=== PATIENT | male | born 1965 | race Caucasian/White ===

== ENCOUNTER 2019-02-20 22:00 | Inpatient (IN) ==
--- NOTE | 2019-02-21 10:54 | PDOC ---
HPI - History of Present Illness History of Present Illness: Mr. willow curry is a very nice 53-year-old gentleman with ALS transferred to [facility] floor for worsening clinical condition from swing bed found to have a left lower lobe pneumonia on CT scan of his chest please read my discharge summary for details Past Medical History Medical History: 1. ALS diagnosed 2 years ago. 2. Respiratory failure dependent on ventilator secondary to ALS. 3. Status post PEG and tracheostomy Surgical History: Tracheostomy and PEG tube October 2018 Family History: Reviewed an Not Pertinent Past Social History: Does not smoke, does not drink now drugs. In the Past 12 Months, Have Used or Abuse Any of the Following Substance: None Medication / Allergies Home Medications: Home Medications Medication Instructions Recorded Confirmed Guaifenesin [Mucinex] 600 mg PEG BID 11/12/18 01/30/19 ibuprofen 100 mg/5 mL oral 600 mg PO TID-QID PRN 90 Days 12/03/18 01/30/19 suspension #4320 ml ipratropium-albuterol 0.5 mg-3 3 ml INH Q6H ml 12/03/18 01/30/19 mg(2.5 mg base)/3 mL nebulization soln sertraline 20 mg/mL oral 100 mg PO QDAY 90 Days #450 ml 12/03/18 01/30/19 concentrate budesonide 0.5 mg/2 mL suspension 2 ml INH BID #60 ml 01/23/19 01/30/19 for nebulization codeine 10 mg-guaifenesin 100 mg/5 2 ml PO Q4-6H PRN #120 ml 01/23/19 01/30/19 mL oral liquid Lorazepam 0.5 mg PO Q6-8H 01/24/19 01/30/19 HYDROcodone/APAP 7.5/325/15ml 15 ml PO Q4H PRN #150 ml 01/25/19 01/30/19 [Lortab 7.5mg/325mg per 15ml Soln] acetylcysteine 200 mg/mL (20 %) 3 ml INH QDAY #270 ml 01/25/19 01/30/19 solution Atropine Sulfate [Isopto Atropine] 5 ml OPHTHALMIC (EYE) Q4-6H PRN 01/30/19 01/30/19 Allergies/Adverse Reactions: Allergies Allergy/AdvReac Type Severity Reaction Status Date / Time No Known Allergies Allergy Verified 02/21/19 07:14 Exam - General General Appearance: No Acute Distress, Cooperative - Respiratory Respiratory Exam: POSITIVE: Breathing Non Labored, Normal to Percussion and Palpation, Rales - Cardiovascular Cardiovascular Exam: POSITIVE: RRR, No Murmur, No Clicks, No Gallops, No Rubs, PMI Non-Displaced - GI/Abdominal GI/Abdominal Exam: POSITIVE: Normal Bowel Sounds, Non Tender, Non Distended, Soft, No Masses, No Hepatomegaly, No Splenomegaly, No Organomegaly - Extremities Extremities Exam: POSITIVE: No Clubbing Present, No Edema Present Assessment and Plan - Patient Problems (1) Hospital-acquired bacterial pneumonia Current Visit: Yes Status: Acute Comment: Cefepime and Vanco blood cultures were drawn band adjustment needed at this time Code(s): J15.9 - Unspecified bacterial pneumonia (2) Respiratory failure, chronic neuromuscular Current Visit: No Status: Chronic Comment: Continue current vent settings Code(s): J96.10 - Chronic respiratory failure, unspecified whether with hypoxia or hypercapnia
[2019-02-21] MEDS ORDERED: ACETAMINOPHEN 325 MG TABLET PO PRN (11:56)
[2019-02-21] MEDS ORDERED: LIDOCAINE W/ SODIUM BICARB 0.5 ML SYR SUBD PRN (11:56)
[2019-02-21] MEDS ORDERED: HYDROcodone/APAP 7.5/325/15ml 15 ML CUP PO PRN (11:56)
[2019-02-21] MEDS ORDERED: LORazepam 1 MG TABLET PO PRN (11:56)
[2019-02-21] MEDS ORDERED: GUAIFENESIN/CODEINE SYRUP 100 MG/ 10 MG/ 5 ML UD CUP PO PRN (11:56)
[2019-02-21] MEDS ORDERED: Bacitracin Oint 14.2 gm tube 14 APPLIC/14.2 GM TUBE TOPICAL PRN (11:56)
[2019-02-21] MEDS ORDERED: SIMETHICONE 40 MG/0.6 ML PO PRN (11:56)
[2019-02-21] MEDS: HEPARIN 500 UNIT/5 ML SYRINGE FOR CENTRAL LINE IVP PRN ×3 (12:35→23:47)
[2019-02-21] MEDS ORDERED: LIDOCAINE 2% VISCOUS(20 MG/1 ML) - 15 ML UD CUP PO ONE (13:24)
[2019-02-21] MEDS: GUAIFENESIN 200 MG/10 ML LIQUID PEG SCH ×2 (13:48→18:59)
--- NOTE | 2019-02-21 13:51 | PDOC(PROG) ---
General Note Progress Note: I spoke with pharmacist Randa Eastman regarding patient's Radicava infusion therapy during acute episode of pneumonia. I have recommended holding treatment until patient is back to "swing bed" status in his more usual state of health. Additionally, I consulted with patient's neurologist (outpatient) Dr. Anna on ~02/14/19 he expressed concern that radicava not likely benefiting patient significantly (however there is no way to be certain). He recommended discontinuation of therapy when/if patient loses the ability to ambulate as this seems to be the most important clinical milestone to Mr. Watson. I agree with this medication and discussed this with Dr. Bucio as well.
[2019-02-21] MEDS: Cefepime Inj 2 GM in Sodium Chloride 0.9% 100 ML IV SCH ×2 (15:22→23:12)
[2019-02-21] MEDS: IBUPROFEN 100 MG/5 ML PO PRN (15:57)
[2019-02-21] MEDS: IPRATROPIUM/ALBUTEROL SULFATE 3 ML NEB NEB PRN (18:45)
[2019-02-21] MEDS: BUDESONIDE 0.5 MG/2 ML NEB SCH (18:45)
[2019-02-21] MEDS: BANATROL PLUS PEG SCH (19:00)
[2019-02-21] MEDS: SIMETHICONE 40 MG/0.6 ML PO SCH (19:00)
[2019-02-21] MEDS ORDERED: GUAIFENESIN 600 MG TABLET PO SCH (21:00)
[2019-02-22 04:40] LABS: BASOPHILS # (AUTO) 0.06 10*3/UL; BASOPHILS % (AUTO) 0.7 % (0-1); EOSINOPHILS # (AUTO) 0.21 10*3/UL; EOSINOPHILS % (AUTO) 2.4 % (0-8); Hematocrit [HCT] 35.7 % (42.0-52.0); Hemoglobin [HGB] 11.9 g/dL (14.0-18.0); LYMPHOCYTES # (AUTO) 1.41 10*3/uL; MEAN CORPUSCULAR HEMOGLOBIN 29.8 PG (27-31); MEAN CORPUSCULAR HGB CONC 33.3 g/dL (33-37); MEAN CORPUSCULAR VOLUME 89.3 FL (80-90); MEAN PLATELET VOLUME 11.1 FL (7.4-12.2); MONOCYTES # (AUTO) 1.02 10*3/UL (0.3-0.8); MONOCYTES % (AUTO) 11.5 % (5-15); NEUTROPHILS # (AUTO) 6.15 10*3/UL; NEUTROPHILS % (AUTO) 69.2 % (50-80)
[2019-02-22 04:46] LABS: PLATELET MORPHOLOGY COMMENT NORMAL MORPHOLOGY (NORM); RBC MORPHOLOGY COMMENT NORMAL MORPHOLOGY (NORM); WBC MORPHOLOGY COMMENT NORMAL MORPHOLOGY (NORM)
[2019-02-22 05:45] LABS: BLOOD UREA NITROGEN 19 mg/dL (7-22); SERUM ALBUMIN 3.5 g/dL (3.5-4.8)
[2019-02-22] MEDS: IPRATROPIUM/ALBUTEROL SULFATE 3 ML NEB NEB PRN ×2 (06:28→18:40)
[2019-02-22] MEDS: ACETYLCYSTEINE NEB SCH (06:29)
[2019-02-22] MEDS: BUDESONIDE 0.5 MG/2 ML NEB SCH ×2 (06:31→18:40)
[2019-02-22] MEDS: Sertraline Tab 50 MG TAB PEG SCH (07:35)
[2019-02-22] MEDS: GUAIFENESIN 200 MG/10 ML LIQUID PEG SCH ×3 (07:49→20:05)
[2019-02-22] MEDS: Cefepime Inj 2 GM in Sodium Chloride 0.9% 100 ML IV SCH ×2 (07:49→16:10)
[2019-02-22] MEDS: BANATROL PLUS PEG SCH ×2 (07:49→20:05)
[2019-02-22] MEDS: SIMETHICONE 40 MG/0.6 ML PO SCH ×2 (07:49→20:06)
[2019-02-22] MEDS: HEPARIN 500 UNIT/5 ML SYRINGE FOR CENTRAL LINE IVP PRN ×2 (07:50→16:20)
--- NOTE | 2019-02-22 09:40 | OTI REPORT ---
Thank you for the referral of Allan Watson. He was seen on 02/21/19 for an occupational therapy inpatient evaluation secondary to ALS. SUBJECTIVE: The patient is a 53-year-old male who is being seen secondary to decreasing function with his ALS. The patient reports he is not doing well. He did text and let the therapist know that he had diuretics last night and he was having to urinate every 10 minutes. They also found pneumonia in his lungs. The patient was brought into the hospital as it is becoming more and more difficult for his family and his girlfriend to take care of him in their home. The patient does have a tracheostomy and a PEG tube for feedings. He has decreased ability with his shoulders and elbows but has more abilities with his lower extremities. The patient does use a [id number] method in order to speak. At this time the patient is non verbal and cannot speak because of the trach and decreased musculature in the oral motor region. Our main goal is to keep the patient comfortable and to keep his joints mobile while he is in the hospital. Today the patient states he does not want to get out of bed as he states he does not feel well secondary to being up most of the night urinating. PAST MEDICAL HISTORY: Past medical history can be found in the patient's medical record. OBJECTIVE FINDINGS: General observations: Today it was observed that the patient does drool. He does have a suction tool to suction out the saliva from his mouth. The patient is not able to speak but cognitively is able to answer simple questions via text. He is still cognizant enough to follow conversation. The patient can use his thumb to text; however, his hand function is decreasing. Range of motion: The patient has zero range of motion in the shoulders and has 0 to 90 degrees of flexion in the elbows. Strength: Shoulder strength is 1/5, elbow strength is 2+/5, wrist strength is 2+/5, and finger strength is 2+/5. He does have some extensor lag in bilateral fingers in digits 2 and 3. Activities of daily living: The patient is dependent with upper extremity dressing and requires max assist for lower extremity dressing. Balance: The patient can sit edge of bed with stand by assist. Transfers: The patient can come from sit to stand from a heightened surface with contact guard to min assist. From a low surface he needs max assist to come from sit to stand. Ambulation: The patient is able to ambulate with contact guard to min assist to keep his balance. ASSESSMENT: Problem List: Decreased range of motion Decreased ability to communicate Generalized weakness Short-Term Goals: To be met by discharge from inpatient: Patient will have 80% of full passive range of motion. Patient will continue to use text with his thumb. Patient will be able to sit edge of bed and complete trunk righting activities. Long-Term Goals: To be met following discharge from inpatient: Patient will return to swingbed status and have decreased physical difficulties. TREATMENT PLAN: Patient will be seen one time per day during the week and one time per day over the weekend as an inpatient to address the above goals and objectives. INITIAL TREATMENT: Treatment today consisted of the initial evaluation followed by passive range of motion to the lower and upper extremities including hips, knees, ankles, and shoulders in all planes and ranges as well as finger extension and wrist extension. We also did cervical rotation and a lateral stretch to the upper traps. The patient reported that this all felt good and he would like to continue with range of motion as he cannot move his joints himself. This also decreases decubitus ulcers and other bedsores. RAMIROD
--- NOTE | 2019-02-22 09:45 | OT.PROG ---
Progress Note Progress Note: S: Pt. stated that he was feeling better with the antibiotics and was ready for stretching. O: tx consisted of BUE PROM stretches of DIP, PIP and MCP flexion and extension, Wrist in all planes of motion, elbow flexion and extension, shoulder PROM in all planes of motion, BLE PROM stretches of hip in all planes of motion, knee flexion and extension, ankle in all planes of motion. pt then completed bed mobility from supine to EOB and transferred with CGA for safety to recliner with FWW. A: pt tolerated session well today. pt had some mild pain with EROT of R UE. P: continue POC
--- NOTE | 2019-02-22 10:37 | PDOC(PROG) ---
Interval History: Patient is doing much better today his lungs sound better he is breathing better and he tells me overall he feels improved compared to yesterday Objective : Data - Labs CBC and BMP: 02/22/19 04:35 02/22/19 04:35 Objective : Exam - General General Appearance: Cooperative - Respiratory Respiratory Exam: Clear to Auscultation - Bilaterally, Breathing Non Labored, Normal To Percussion, Normal to Percussion and Palpation - Cardiovascular Cardiovascular Exam: RRR, No Murmur, No Clicks, No Gallops, No Rubs, PMI Non- Displaced Assessment and Plan - Patient Problems (1) Hospital-acquired bacterial pneumonia Current Visit: Yes Status: Acute Comment: Continue cefepime and vancomycin expectorate growing staph aureus RT attempted to remove mucous plug we did get some expectorate out discussed with general respiratory therapy and radiology we will repeat his CT scan without contrast to make sure the mucous plug is removed otherwise he might need to do a bronchoscopy this would be a life or situation to know if the mucous plug is removed for the betterment of his pneumonia thus why we are getting another CT scan after discussion with the discussed with patient on agreement Code(s): J15.9 - Unspecified bacterial pneumonia (2) Respiratory failure, chronic neuromuscular Current Visit: No Status: Chronic Comment: Continue vent no changes are needed Code(s): J96.10 - Chronic respiratory failure, unspecified whether with hypoxia or hypercapnia
--- NOTE | 2019-02-22 13:25 | DI ---
CT Chest WO Contrast,02/22/2019 10:34 AM: Clinical History: The disc plug and pneumonia. Previous Exam: 02/20/2019 Findings: Multiple helically acquired CT images are obtained through the chest without contrast, and demonstrat e interval clearance of debris within the left mainstem bronchus and lower lobe bronchi. There is henry e increasing air bronchograms within the airspace disease in the left lung base. There is a tracheostomy in good position. Skeletal structures are unremarkable. Impression: 1. Interval clearance of debris within the left mainstem bronchus with some improved aeration of airs pace disease within the left posterior lung base. 2. Stable left lower lobe pneumonia.
[2019-02-22] MEDS: IBUPROFEN 100 MG/5 ML PO PRN (16:03)
[2019-02-23] MEDS: Cefepime Inj 2 GM in Sodium Chloride 0.9% 100 ML IV SCH ×3 (00:38→15:14)
[2019-02-23] MEDS: HEPARIN 500 UNIT/5 ML SYRINGE FOR CENTRAL LINE IVP PRN ×3 (04:49→15:15)
[2019-02-23 05:47] LABS: BASOPHILS # (AUTO) 0.06 10*3/UL; BASOPHILS % (AUTO) 0.8 % (0-1); EOSINOPHILS # (AUTO) 0.37 10*3/UL; Hematocrit [HCT] 36.1 % (42.0-52.0); Hemoglobin [HGB] 11.9 g/dL (14.0-18.0); LYMPHOCYTES # (AUTO) 1.52 10*3/uL; MEAN CORPUSCULAR HEMOGLOBIN 29.8 PG (27-31); MEAN CORPUSCULAR VOLUME 90.5 FL (80-90); MEAN PLATELET VOLUME 11.5 FL (7.4-12.2); MONOCYTES # (AUTO) 0.86 10*3/UL (0.3-0.8); MONOCYTES % (AUTO) 11.5 % (5-15); NEUTROPHILS # (AUTO) 4.62 10*3/UL; NEUTROPHILS % (AUTO) 61.9 % (50-80); RED BLOOD COUNT 3.99 10^6/uL (4.70-6.10)
[2019-02-23 05:57] LABS: BLOOD UREA NITROGEN 18 mg/dL (7-22); SERUM ALBUMIN 3.5 g/dL (3.5-4.8)
[2019-02-23 06:07] LABS: PLATELET MORPHOLOGY COMMENT NORMAL MORPHOLOGY (NORM); RBC MORPHOLOGY COMMENT NORMAL MORPHOLOGY (NORM); WBC MORPHOLOGY COMMENT NORMAL MORPHOLOGY (NORM)
[2019-02-23] MEDS: ACETYLCYSTEINE NEB SCH (06:46)
[2019-02-23] MEDS: BUDESONIDE 0.5 MG/2 ML NEB SCH ×2 (06:48→18:43)
[2019-02-23] MEDS: IPRATROPIUM/ALBUTEROL SULFATE 3 ML NEB NEB PRN ×2 (06:49→18:46)
[2019-02-23] MEDS: BANATROL PLUS PEG SCH ×2 (07:12→19:28)
[2019-02-23] MEDS: GUAIFENESIN 200 MG/10 ML LIQUID PEG SCH ×3 (07:12→19:28)
[2019-02-23] MEDS: SIMETHICONE 40 MG/0.6 ML PO SCH ×2 (07:13→19:28)
[2019-02-23] MEDS: Sertraline Tab 50 MG TAB PEG SCH (07:13)
--- NOTE | 2019-02-23 11:57 | OT.PROG ---
Progress Note Progress Note: S: Pt. stated that he needed to go the bathroom. O: tx consisted of bed mobility to EOB, STS x1 to complete toileting tasks, BUE PROM stretches of DIP, PIP and MCP flexion and extension, Wrist in all planes of motion, elbow flexion and extension, shoulder PROM in all planes of motion, BLE PROM stretches of hip in all planes of motion, knee flexion and extension, ankle in all planes of motion. pt then completed bed mobility from supine to EOB and transferred with CGA for safety to recliner with FWW. A: pt tolerated session well today. pt had some mild pain with EROT of R UE. P: continue POC
--- NOTE | 2019-02-23 17:18 | PDOC(PROG) ---
Date of Service: 02/23/19 Time of Service: 17:07 Interval History: patient seen, evaluated earlier discussed with RN, RT in room patient feels his breathing has been okay, no sepsis reviewed Biofire profile. Objective : Data - Labs CBC and BMP: 02/23/19 04:55 02/23/19 04:55 Additional Lab Results: 02/23/19 08:42 Vancomycin Trough 9.98 - Imaging CT Scan Status: Image Reviewed by Me (I reviewed both CT scans of the chest. left lower lobe pneumonia, perhaps with less mucous plugging on second study, but really no change in infiltrate on my view) Objective : Exam - General General Appearance: No Acute Distress, Cooperative Additional General Exam Details: Vital Signs - Last Taken Temperature 98.9 F 02/23/19 12:24 Pulse Rate 69 02/23/19 12:24 Respiratory Rate 24 02/23/19 12:24 Blood Pressure 94/56 02/23/19 12:24 Pulse Ox 99 02/23/19 12:24 - Eye Eye Exam: No Scleral Icterus - ENT ENT Exam: Mucous Membranes Moist Additonal ENT Exam Details: trach looks okay. - Respiratory Respiratory Exam: Breathing Non Labored Additional Respiratory Exam Details: ventilatory breath sounds. - Cardiovascular Cardiovascular Exam: RRR, No Murmur, No Clicks, No Gallops, No Rubs, No JVD - GI/Abdominal GI/Abdominal Exam: Normal Bowel Sounds, Non Tender, Non Distended, Soft - Extremities Extremities Exam: No Clubbing Present, No Edema Present, No Cyanosis Present - Neurological Neurological Exam: Alert, Oriented x 3, No Facial Droop Assessment and Plan - Patient Problems (1) Hospital-acquired bacterial pneumonia Current Visit: Yes Status: Acute Code(s): J15.9 - Unspecified bacterial pneumonia (2) Respiratory failure, chronic neuromuscular Current Visit: Yes Status: Chronic Code(s): J96.10 - Chronic respiratory failure, unspecified whether with hypoxia or hypercapnia (3) Tracheostomy in place Current Visit: Yes Status: Chronic Code(s): Z93.0 - Tracheostomy status (4) ALS (amyotrophic lateral sclerosis) Current Visit: Yes Status: Chronic Code(s): G12.21 - Amyotrophic lateral sclerosis - Assessment / Plan Additional Assessment/Plan Details: given the complexity in these pneumonias and neuromuscular respiratory failure, I agree 100% with Dr. Bucio that this could be a life threatening pneumonia. I reviewed the Biofire profile on the sputum wash sample. it does not differentiate between MSSA and MRSA. they are trying to re-plate and grow I spoke with RT and think we should continue metanebs and add chest physiotherapy. I am not sure this pneumonia will improve without bronchoscopy and I will discuss with the patient I spoke with ID regarding the Biofire staph areus result and it is probably colonization. The patient is not septic or showing signs of a severe MRSA pneumonia. In my experience and via literature, MRSA pneumonia severe, often with sepsis, and carries 50% mortality--patient not showing those signs drop vancomycin, change cefepime to 2 grams IV Q 12 hours. labs in AM
[2019-02-24] MEDS: Cefepime Inj 2 GM in Sodium Chloride 0.9% 100 ML IV SCH ×2 (02:53→14:14)
[2019-02-24] MEDS: HEPARIN 500 UNIT/5 ML SYRINGE FOR CENTRAL LINE IVP PRN ×2 (03:30→14:14)
[2019-02-24 05:00] LABS: BASOPHILS # (AUTO) 0.06 10*3/UL; BASOPHILS % (AUTO) 0.8 % (0-1); EOSINOPHILS # (AUTO) 0.34 10*3/UL; EOSINOPHILS % (AUTO) 4.5 % (0-8); Hematocrit [HCT] 35.4 % (42.0-52.0); LYMPHOCYTES # (AUTO) 1.56 10*3/uL; MEAN CORPUSCULAR HEMOGLOBIN 30.3 PG (27-31); MEAN CORPUSCULAR HGB CONC 33.9 g/dL (33-37); MEAN CORPUSCULAR VOLUME 89.4 FL (80-90); MEAN PLATELET VOLUME 11.1 FL (7.4-12.2); MONOCYTES # (AUTO) 0.66 10*3/UL (0.3-0.8); MONOCYTES % (AUTO) 8.8 % (5-15); NEUTROPHILS # (AUTO) 4.88 10*3/UL; NEUTROPHILS % (AUTO) 64.9 % (50-80); RED BLOOD COUNT 3.96 10^6/uL (4.70-6.10)
[2019-02-24 05:11] LABS: PLATELET MORPHOLOGY COMMENT NORMAL MORPHOLOGY (NORM); RBC MORPHOLOGY COMMENT NORMAL MORPHOLOGY (NORM); WBC MORPHOLOGY COMMENT NORMAL MORPHOLOGY (NORM)
[2019-02-24 06:35] LABS: BLOOD UREA NITROGEN 17 mg/dL (7-22)
[2019-02-24] MEDS: GUAIFENESIN 200 MG/10 ML LIQUID PEG SCH ×3 (06:44→19:16)
[2019-02-24] MEDS: BANATROL PLUS PEG SCH ×2 (06:44→19:16)
[2019-02-24] MEDS: Sertraline Tab 50 MG TAB PEG SCH (06:44)
[2019-02-24] MEDS: SIMETHICONE 40 MG/0.6 ML PO SCH ×2 (06:45→19:16)
[2019-02-24] MEDS: IPRATROPIUM/ALBUTEROL SULFATE 3 ML NEB NEB PRN ×2 (07:37→20:33)
[2019-02-24] MEDS: BUDESONIDE 0.5 MG/2 ML NEB SCH ×2 (07:42→20:32)
[2019-02-24] MEDS: ACETYLCYSTEINE NEB SCH ×3 (07:43→20:33)
--- NOTE | 2019-02-24 10:55 | OT.PROG ---
Progress Note Progress Note: S: Pt. stated that he was tired but watned to be stretched. O: tx consisted of BUE PROM stretches of DIP, PIP and MCP flexion and extension, Wrist in all planes of motion, elbow flexion and extension, shoulder PROM in all planes of motion, BLE PROM stretches of hip in all planes of motion, knee flexion and extension, ankle in all planes of motion. A: pt tolerated session well today. P: continue POC
--- NOTE | 2019-02-24 14:02 | PDOC(PROG) ---
Date of Service: 02/24/19 Time of Service: 13:57 Interval History: patient seen, evaluated earlier with RN he says he is a aníbal that wants to start simple solutions first. wants to continue antibiotics prior to any procedures and wants to avoid bronch if possible. breathing is okay no other issues. Objective : Data - Labs CBC and BMP: 02/24/19 04:45 02/24/19 04:45 Objective : Exam - General General Appearance: No Acute Distress, Cooperative Additional General Exam Details: Vital Signs - Last Taken Temperature 97.8 F 02/24/19 11:23 Pulse Rate 68 02/24/19 12:44 Respiratory Rate 24 02/24/19 12:44 Blood Pressure 96/62 02/24/19 11:23 Pulse Ox 97 02/24/19 12:44 - Eye Eye Exam: No Scleral Icterus - ENT ENT Exam: Mucous Membranes Moist - Neck Neck Exam: JVP is not Raised Additional Neck Exam Details: trach site no erythema - Respiratory Respiratory Exam: Clear to Auscultation - Bilaterally, Breathing Non Labored Additional Respiratory Exam Details: ventilatory sounds - Cardiovascular Cardiovascular Exam: RRR, No Murmur, No Clicks, No Gallops, No Rubs, No JVD - GI/Abdominal GI/Abdominal Exam: Normal Bowel Sounds, Non Tender, Non Distended, Soft - Extremities Extremities Exam: No Clubbing Present, No Edema Present, No Cyanosis Present - Neurological Neurological Exam: Alert, No Facial Droop Assessment and Plan - Patient Problems (1) Hospital-acquired bacterial pneumonia Current Visit: Yes Status: Acute Code(s): J15.9 - Unspecified bacterial pneumonia (2) Respiratory failure, chronic neuromuscular Current Visit: Yes Status: Chronic Code(s): J96.10 - Chronic respiratory failure, unspecified whether with hypoxia or hypercapnia (3) Tracheostomy in place Current Visit: Yes Status: Chronic Code(s): Z93.0 - Tracheostomy status (4) ALS (amyotrophic lateral sclerosis) Current Visit: Yes Status: Chronic Code(s): G12.21 - Amyotrophic lateral sclerosis - Assessment / Plan Additional Assessment/Plan Details: today is day #3 of 8 for antibiotics repeat CXR this next week to check on infiltrate I spoke with respiratory, patient reluctant to do chest physiotherapy, so will make PRN schedule mucomyst inhaled therapies to BID (need some help maintaining no mucous plugging if possible.)
[2019-02-24] MEDS ORDERED: ACETYLCYSTEINE NEB SCH (19:00)
[2019-02-25] MEDS: Cefepime Inj 2 GM in Sodium Chloride 0.9% 100 ML IV SCH ×2 (03:05→15:22)
[2019-02-25] MEDS ORDERED: IPRATROPIUM/ALBUTEROL SULFATE 3 ML NEB NEB ONE (06:51)
[2019-02-25] MEDS: IPRATROPIUM/ALBUTEROL SULFATE 3 ML NEB NEB PRN ×2 (07:05→19:54)
[2019-02-25] MEDS: ACETYLCYSTEINE NEB SCH ×2 (07:09→19:55)
[2019-02-25] MEDS: Sertraline Tab 50 MG TAB PEG SCH (07:28)
[2019-02-25] MEDS: GUAIFENESIN 200 MG/10 ML LIQUID PEG SCH ×3 (07:28→18:39)
[2019-02-25] MEDS: SIMETHICONE 40 MG/0.6 ML PO SCH ×2 (07:28→18:39)
[2019-02-25] MEDS: BANATROL PLUS PEG SCH ×2 (07:28→18:40)
[2019-02-25] MEDS: BUDESONIDE 0.5 MG/2 ML NEB SCH ×2 (07:55→19:53)
--- NOTE | 2019-02-25 10:25 | PTI REPORT ---
Thank you for the referral of Allan Watson. He was seen on 02/22/19 for an inpatient evaluation secondary to ALS. SUBJECTIVE: The patient is a 53-year-old male who has a diagnosis of ALS and has been progressively declining with his overall mobility and ability to use his upper extremities. He has recently been placed on a feeding tube and also does have a ventilator to assist with breathing. The patient was admitted as a swingbed patient due to some difficulties with caregiver fatigue. Per that report he has not noted any acute changes in his symptoms. Per his chart, the patient lives with his girlfriend and his two sons who all serve as caretakers for him as he needs help with most ADLs due to the progression of his ALS. The patient does have a [id number] which he is able to communicate through. The patient was recently found to have pneumonia and was transferred back to inpatient status. The patient is very lethargic this afternoon but states that he would like to get up and at least walk with therapy. PAST MEDICAL HISTORY: Past medical history can be found in the patient's medical record. OBJECTIVE FINDINGS: General observations: The patient was alert and oriented to setting upon PT arrival. The patient does have a ventilator and a PEG tube. He is able to use the right thumb in order to [id number]-byca as his form of communication. Pain: The patient does complain of soreness from sitting and a ROHO cushion was properly fit and placed in the patient's chair to help with pressure relief. Transfers: The patient was able to perform a sit to stand transfer with contact guard assist x1 for safety. The patient is able to transfer from standing to seated position with contact guard assist x1 for safety. Ambulation: The patient utilizes a front wheeled walker in order to ambulate 300 feet with assist of two due to his lines and leads and ventilator. ASSESSMENT: The patient has fair to poor rehab potential secondary to his diagnosis of ALS. Problem List: Decreased mobility Increased fatigue Caregiver education and determining what would be best for the patient with his need for 24-hour care Physical Therapy Goals: To be met by discharge from inpatient: Patient will be seen by physical therapy in order to work on maintaining his mobility and strength of his lower extremities within his tolerance and not going past sub-max work in order to prevent further fatiguing his lower extremity muscles as he is able to perform transfers with minimal assist. Caregiver will receive education as needed. Staff and caregivers now along with patient will determine the most appropriate placement for patient and we will help look into and recommend options as needed. TREATMENT PLAN: Patient will be seen one time per day during the week and one time per day over the weekend as an inpatient to address the above goals and objectives. We will shoot for the afternoons as the patient is generally doing better. It will also be dependent on patient's presentation. We will withhold active exercises if the patient is too fatigued. We will work on some passive motion for lower extremities if fatigue limits us from exercise. INITIAL TREATMENT: Treatment today consisted of the initial evaluation activities only. DANIELA
--- NOTE | 2019-02-25 10:58 | OT.PROG ---
Progress Note Progress Note: S: Pt. stated that he was tired but wanted to be stretched. O: tx consisted of BUE PROM stretches of DIP, PIP and MCP flexion and extension, Wrist in all planes of motion, elbow flexion and extension, shoulder PROM in all planes of motion,scapular mobilizations, BLE PROM stretches of hip in all planes of motion, knee flexion and extension, ankle in all planes of motion. A: pt tolerated session well today. P: continue POC
--- NOTE | 2019-02-25 12:35 | PDOC(PROG) ---
Date of Service: 02/25/19 Time of Service: 12:32 Interval History: more tired today, no compromise in breathing status. no complaints of pain. Objective : Data - Labs CBC and BMP: 02/24/19 04:45 02/24/19 04:45 Objective : Exam - General General Appearance: No Acute Distress, Cooperative Additional General Exam Details: Vital Signs - Last Taken Temperature 98.2 F 02/25/19 08:07 Pulse Rate 68 02/25/19 08:07 Respiratory Rate 20 02/25/19 08:07 Blood Pressure 91/52 02/25/19 08:07 Pulse Ox 97 02/25/19 08:07 vent settings have remained unchanged. - Eye Eye Exam: No Scleral Icterus - ENT ENT Exam: Mucous Membranes Moist - Neck Additional Neck Exam Details: trach looks good, no erythema. - Respiratory Respiratory Exam: Breathing Non Labored, Crackles (very slight. left base) - Cardiovascular Cardiovascular Exam: RRR, No Murmur, No Clicks, No Gallops, No Rubs, No JVD - GI/Abdominal GI/Abdominal Exam: Normal Bowel Sounds, Non Tender, Non Distended, Soft - Extremities Extremities Exam: No Clubbing Present, No Edema Present, No Cyanosis Present - Neurological Neurological Exam: Alert, Oriented x 3, No Facial Droop Assessment and Plan - Patient Problems (1) Hospital-acquired bacterial pneumonia Current Visit: Yes Status: Acute Code(s): J15.9 - Unspecified bacterial pneumonia (2) Respiratory failure, chronic neuromuscular Current Visit: Yes Status: Chronic Code(s): J96.10 - Chronic respiratory failure, unspecified whether with hypoxia or hypercapnia (3) Tracheostomy in place Current Visit: Yes Status: Chronic Code(s): Z93.0 - Tracheostomy status (4) ALS (amyotrophic lateral sclerosis) Current Visit: Yes Status: Chronic Code(s): G12.21 - Amyotrophic lateral sclerosis - Assessment / Plan Additional Assessment/Plan Details: continue cefepime, day #4 of 8 clinically patient is improved, but still high risk for worsening. we discussed this a lot yesterday. no infusions for ALS until antibiotic therapy completed for pneumonia will check CXR tomorrow of chest to re-evaluate infiltrate
[2019-02-25] MEDS: HEPARIN 500 UNIT/5 ML SYRINGE FOR CENTRAL LINE IVP PRN (15:23)
[2019-02-25] MEDS: IBUPROFEN 100 MG/5 ML PO PRN (16:41)
--- NOTE | 2019-02-25 17:08 | PT.PROG ---
Progress Note Progress Note: S. Patient stated he would like to go for a walk. O. Patient ambulated 300 feet around the nurses station and back to his room where he was left in his chair with nursing staff. A. Patient tolerated ambulation well, he continues to require min assist with transfers and contact guard assist with ambulation. Patient would continue to benefit from skilled therapy to maintain mobility and strength. P. Continue POC.
[2019-02-26] MEDS: Cefepime Inj 2 GM in Sodium Chloride 0.9% 100 ML IV SCH ×2 (03:02→15:50)
[2019-02-26] MEDS: ACETYLCYSTEINE NEB SCH ×2 (06:52→22:08)
[2019-02-26] MEDS: IPRATROPIUM/ALBUTEROL SULFATE 3 ML NEB NEB PRN ×2 (06:53→18:35)
[2019-02-26] MEDS: BUDESONIDE 0.5 MG/2 ML NEB SCH ×2 (06:58→18:37)
[2019-02-26] MEDS: Sertraline Tab 50 MG TAB PEG SCH (07:05)
[2019-02-26] MEDS: GUAIFENESIN 200 MG/10 ML LIQUID PEG SCH ×3 (07:06→19:06)
[2019-02-26] MEDS: BANATROL PLUS PEG SCH ×2 (07:06→19:06)
[2019-02-26] MEDS: SIMETHICONE 40 MG/0.6 ML PO SCH ×2 (07:06→19:06)
--- NOTE | 2019-02-26 08:03 | DI ---
XR CXR 1VW,02/26/2019 7:00 AM: Clinical History: Left lower lobe pneumonia. Previous Exam: 02/20/19 Findings: A single frontal radiograph of the chest is obtained, and demonstrate increased density within the le ft lower lobe. There is a stable chest port in good position. A tracheostomy tube is also in good position. Impression: Left lower lobe pneumonia.
--- NOTE | 2019-02-26 13:19 | OT.PROG ---
Progress Note Progress Note: S: pt did shake his head yes or no several times during time in his room this morning. O: pt was seen in his room and received manual therapy in form of PROM to UE/LE in all ranges to maintain movement in flexibility. A: pt participated well and did not appear be in any discomfort during PROM P: continue per pOC.
--- NOTE | 2019-02-26 13:52 | PDOC(PROG) ---
Date of Service: 02/26/19 Time of Service: 13:46 Interval History: States that he feels a little bit more raspy today, perhaps a little more secretions. Otherwise breathing fine, trach change is more comfortable today. No other pains or discomforts. Objective : Data - Labs CBC and BMP: 02/24/19 04:45 02/24/19 04:45 Objective : Exam - General General Appearance: No Acute Distress, Cooperative Additional General Exam Details: Vital Signs - Last Taken Temperature 97.8 F 02/26/19 07:50 Pulse Rate 64 02/26/19 07:50 Respiratory Rate 20 02/26/19 07:50 Blood Pressure 100/54 02/26/19 07:50 Pulse Ox 97 02/26/19 07:50 - Eye Eye Exam: No Scleral Icterus Additional Eye Exam Details: trach without erythema. - ENT ENT Exam: Mucous Membranes Moist - Respiratory Respiratory Exam: Breathing Non Labored, Crackles (left bases) - Cardiovascular Cardiovascular Exam: RRR, No Murmur, No Clicks, No Gallops, No Rubs, No JVD - GI/Abdominal GI/Abdominal Exam: Normal Bowel Sounds, Non Tender, Non Distended, Soft Additional GI/Abdominal Exam Details: PEG tube in place - Extremities Extremities Exam: No Clubbing Present, No Edema Present, No Cyanosis Present - Neurological Neurological Exam: Alert, Oriented x 3, No Facial Droop, Moves All Extremities Equally Assessment and Plan - Patient Problems (1) Hospital-acquired bacterial pneumonia Current Visit: Yes Status: Acute Code(s): J15.9 - Unspecified bacterial pneumonia (2) Respiratory failure, chronic neuromuscular Current Visit: Yes Status: Chronic Code(s): J96.10 - Chronic respiratory fa ilure, unspecified whether with hypoxia or hypercapnia (3) Tracheostomy in place Current Visit: Yes Status: Chronic Code(s): Z93.0 - Tracheostomy status (4) ALS (amyotrophic lateral sclerosis) Current Visit: Yes Status: Chronic Code(s): G12.21 - Amyotrophic lateral sclerosis - Assessment / Plan Additional Assessment/Plan Details: day #5 of 8 for antibiotics for pneumonia. I discussed with pulmonology as I reviewed CXR CT scans from to present--I think the LLL findings were present--the question is whether the patient would benefit from an outpatient bronchoscopy--they will review films and let me know. continue RT care labs in AM
[2019-02-26] MEDS: HEPARIN 500 UNIT/5 ML SYRINGE FOR CENTRAL LINE IVP PRN (15:50)
--- NOTE | 2019-02-26 16:46 | PT.PROG ---
Progress Note Progress Note: S. Patient stated he would like to go for a walk. O. Patient ambulated 300 feet around the nurses station and back to his room where he was left in the shower with nursing staff. A. Patient tolerated ambulation well, he continues to require min assist with transfers and contact guard assist with ambulation. Patient would continue to benefit from skilled therapy to maintain mobility and strength. P. Continue POC
[2019-02-27] MEDS: Cefepime Inj 2 GM in Sodium Chloride 0.9% 100 ML IV SCH ×2 (03:09→16:29)
[2019-02-27] MEDS: HEPARIN 500 UNIT/5 ML SYRINGE FOR CENTRAL LINE IVP PRN ×4 (04:57→16:36)
[2019-02-27] MEDS: IPRATROPIUM/ALBUTEROL SULFATE 3 ML NEB NEB PRN (06:48)
[2019-02-27] MEDS: BUDESONIDE 0.5 MG/2 ML NEB SCH (06:49)
[2019-02-27] MEDS: SIMETHICONE 40 MG/0.6 ML PO SCH (07:14)
[2019-02-27] MEDS: GUAIFENESIN 200 MG/10 ML LIQUID PEG SCH ×2 (07:14→16:28)
[2019-02-27] MEDS: BANATROL PLUS PEG SCH (07:14)
[2019-02-27] MEDS: Sertraline Tab 50 MG TAB PEG SCH (07:14)
[2019-02-27 08:45] VITALS: RESP 24
--- NOTE | 2019-02-27 11:44 | OT.PROG ---
Progress Note Progress Note: S: Pt. stated that he wanted to be stretched. O: tx consisted of BUE PROM stretches of DIP, PIP and MCP flexion and extension, Wrist in all planes of motion, elbow flexion and extension, shoulder PROM in all planes of motion,scapular mobilizations, BLE PROM stretches of hip in all planes of motion, knee flexion and extension, ankle in all planes of motion. A: pt tolerated session well today. P: continue POC
[2019-02-27] MEDS ORDERED: ACETYLCYSTEINE NEB PRN (14:15)
--- NOTE | 2019-02-27 14:26 | DCSUMMARY ---
Hospitalization Summary Admit Date: 02/21/2019 Discharge Date: 02/27/19 Primary Diagnosis:: left lower lobe pneumonia Hospital Course: This very pleasant 53-year-old male who has been on the swing bed as a long-term patient with ALS with chronic neuromuscular respiratory failure, PEG tube dependence, and significant atrophy and deconditioning. He was doing fine but it was noticed via chest x-ray and eventually CT scan on 02/21/2019, that the patient had a left lower lobe pneumonia. He was admitted and patient is placed on cefepime and vancomycin. He was found to have staph coccus aureus on respiratory aspirate and mucus plugging was actually cleared by respiratory therapy. I spoke with infectious diseases, and they did not think that the Staphylococcus aureus was true cause of infection as the patient did not have an elevated white count, was not febrile and was not sicker than what he was given the high mortality rate of staph aureus pneumonias in particular, MRSA. Given that, we de-escalate antibiotics from cefepime and vancomycin to cefepime but adjusted the dosing to twice a day versus every 8 hours because of the patient's immune system size, and relative distribution of the drug. Again this was all discussed in [facility] consultation with infectious disease. The patient is responded very well. He is currently on day #6 of 8 days of IV antibiotics and will finish his antibiotics on 03/01/2019 after his last dose that day. I told him that we will not do infusions for ALS until he has completed his antibiotic therapy. I did repeat chest x-ray and spoke with pulmonology in [place], and it was recommended that the chest x-ray and CT scans look improved in particular, the most recent chest x-ray on 02/26/2019. I asked specifically whether or not they thought up from constipation be done and they felt that it did not need to be do ne. Today, the patient states that he's felt a little bit more tired and thinks that the antibiotics are causing some fatigue and is looking forward to completing this therapy. He states he feels a little more constipated and wants us to try and eliminate one dose of the banana flakes. He does respond to MiraLAX but wants to hold off on that today. I spoke with pharmacy and they would like us to adjust to put in an date on the cefepime and the orders which I've done and updated. We did a trach exchange during the hospital stay. I did some research and found that most chronic tracheostomy patients have tracheostomy changes about every 60 days but there is no definitive expert opinion or research that points to the best and optimal timing. However there are several opinions that a cuffed trach tube should be changed more frequently because of the risk of granulation tissue, tracheal stenosis, thickened pain with larger intervals in terms of those exchange processes. I spoke with [facility], with respiratory therapy, and suggested that any future tracheostomy changes should happen with the tracheostomy exchange tube very similar to a Seldinger technique. I spoke with ear nose and throat, and Dr. Marin stated to me that he typically works the tracheostomy that do not have coughs, but would be glad to assist in any way. I told him that in particular I wanted to make sure that tracheostomy changes were done on days that he was here which would be Mondays. And he was agreeable to that. We will probably have a protocol where we change the tracheostomy tube every week to 2 weeks based on the information that I have read I think this would be most efficient for the patient in terms of pain and potential complications as noted above. Assessment and Plan: 1. As per discharge assessments noted 2. Disposition: Patient is discharged to the swing bed 3. Condition on discharge, stable and improved. Overall prognosis terminal 4. Diet: Patient will remain nothing by mouth and will continue tube feedings 5. Activities: resume normal activities 6. Follow-Up: 1. The hospital service will continue to follow the patient. The patient is well aware that we are doing all of this care to the best of our ability but that we are not at the standard of a [facility] or long-term acute care facility and the patient is been very gracious and has stated to us several times now that he just is hopeful that we will continue to try our best and he is very happy with his care and he would much rather be here and then in a long- term acute care facility away from his family. He states that this is true regardless of his life expectancy. 2. 7. Medications at the Time of Discharge: Active Medications Generic Name Dose Route Start Last Admin Trade Name Freq PRN Reason Stop Dose Admin Acetaminophen 650 mg 02/21/19 11:56 Tylenol PO Q4H PRN Headache Hydrocodone Bitart/Acetaminophen 15 ml 02/21/19 11:56 Lortab 7.5mg/325mg Per 15ml Soln PO Q4H PRN Pain Acetylcysteine 600 mg 02/27/19 14:15 Mucomyst Neb Soln NEB RTBID PRN mucous plugging Albuterol/Ipratropium 3 ml 02/21/19 11:56 02/27/19 06:48 Duoneb Neb Soln NEB 3 ml RTQ6H PRN Administration Shortness of Breath Bacitracin 1 applic 02/21/19 11:56 Bacitracin Ointment 14.2 Gm Tube TOPICAL DAILY PRN Irritation Budesonide 0.5 mg 02/21/19 19:00 02/27/19 06:49 Pulmicort Neb Soln NEB 0.5 mg RTBID SHANITA Administration Guaifenesin 200 mg 02/21/19 13:00 02/27/19 07:14 Mucus-Chest Congestion PEG 200 mg TID@0700,1300,1900 SHANITA Administration Heparin Sodium (Porcine) 500 unit 02/21/19 11:56 02/27/19 04:57 Heparin Lock Inj (For Central Line) IVP 500 unit Q24H PRN Administration Flush Sodium Chloride 25 mls @ 200 mls/hr 02/21/19 11:56 02/26/19 15:50 Normal Saline 0.9% IV 200 mls/hr .Post Infusion PRN Administration .No Primary IV for Flush Only Cefepime HCl 2 gm/ Sodium 100 mls @ 200 mls/hr 02/24/19 03:00 02/27/19 03:09 Chloride IV 03/01/19 23:59 200 mls/hr Q12H SHANITA Administration Ibuprofen 600 mg 02/21/19 13:00 02/25/19 16:41 Children's Ibuprofen PO 600 mg QID PRN Administration Fever or Pain Lidocaine HCl 0.5 ml 02/21/19 11:56 Lidocaine Buffered Inj SUBD ONCE PRN IV Starts Lorazepam 0.5 mg 02/21/19 11:56 Ativan Tab PO QID PRN Anxiety Non-Formulary Medication 150 mg 02/21/19 11:56 Ranitidine PEG BID PRN Heartburn Non-Formulary Medication 1 packet 02/28/19 09:00 Banatrol Plus 10.75g Packet PEG DAILY SHANITA Sertraline HCl 100 mg 02/22/19 07:00 02/27/19 07:14 Zoloft PEG 100 mg DAILY@0700 SHANITA Administration Simethicone 40 mg 02/21/19 19:00 02/27/19 07:14 Mylicon Liquid PO 40 mg BID@0700,1900 SHANITA Administration Simethicone 40 mg 02/21/19 11:56 02/26/19 19:06 Mylicon Liquid PO 40 mg QID PRN Administration Gas 8. Time, care, counseling and coordination of care for this discharge is greater than 30 minutes. Exam - Vitals Vital Signs: Vital Signs Temperature 98.1 F Temperature Source Temporal Artery Scan Pulse Rate [Pulse Oximeter] 65 Pulse Rate 70 Respiratory Rate 24 Blood Pressure [Right Arm] 95/57 Blood Pressure [Left Arm] 102/62 Pulse Ox 97 Oxygen Flow Rate 4 Oxygen Delivery Method Mechanical Ventilator Height 6 ft Weight 243 lb 1.6 oz - General General Appearance: No Acute Distress, Cooperative - Eye Eye Exam: POSITIVE: No Scleral Icterus - ENT ENT Exam: POSITIVE: Mucous Membranes Moist - Neck Neck Exam: JVP is not Raised - Respiratory Respiratory Exam: POSITIVE: Breathing Non Labored, Crackles (Very slight crackles in left base that I think have improved throughout hospital stay.), Coarse Breath Sounds - Cardiovascular Cardiovascular Exam: POSITIVE: RRR, No Murmur, No Clicks, No Gallops, No Rubs, No JVD - GI/Abdominal GI/Abdominal Exam: POSITIVE: Normal Bowel Sounds, Non Tender, Non Distended, Soft - Extremities Extremities Exam: POSITIVE: No Clubbing Present, No Edema Present, No Cyanosis Present - Neurological Neurological Exam: POSITIVE: Alert, Oriented x 3, No Facial Droop - Psychiatric Psychiatric Exam: POSITIVE: Normal Affect, Normal Mood Data Peritnent Studies: 02/23/19 02/23/19 02/24/19 04:55 08:42 04:45 WBC 7.52 Hgb 12.0 L Hct 35.4 L Plt Count 246 Sodium Potassium Chloride Carbon Dioxide Anion Gap BUN Creatinine Estimated GFR BUN/Creatinine Ratio Glucose Calculated Osmolality Calcium Total Bilirubin 0.3 AST 35 ALT 61 Alkaline Phosphatase 117 Total Protein 6.1 Albumin 3.5 Globulin 2.6 Albumin/Globulin Ratio 1.30 Vancomycin Trough 9.98 02/24/19 04:45 WBC Hgb Hct Plt Count Sodium 141 Potassium 4.3 Chloride 99 Carbon Dioxide 29 Anion Gap 13 BUN 17 Creatinine 0.4 L Estimated GFR > 60 BUN/Creatinine Ratio 42.50 H Glucose 104 Calculated Osmolality 293.0 H Calcium 9.2 Total Bilirubin AST ALT Alkaline Phosphatase Total Protein Albumin Globulin Albumin/Globulin Ratio Vancomycin Trough Patient Problems - Patient Problem List (1) Hospital-acquired bacterial pneumonia Current Visit: Yes Status: Acute Code(s): J15.9 - Unspecified bacterial pneumonia Category: Medical (2) Respiratory failure, chronic neuromuscular Current Visit: Yes Status: Chronic Code(s): J96.10 - Chronic respiratory failure, unspecified whether with hypoxia or hypercapnia Category: Medical (3) Tracheostomy in place Current Visit: Yes Status: Chronic Code(s): Z93.0 - Tracheostomy status Category: Surgical (4) ALS (amyotrophic lateral sclerosis) Current Visit: Yes Status: Chronic Code(s): G12.21 - Amyotrophic lateral sclerosis Category: Medical
[2019-02-27 16:13] VITALS: BP 113/66; TEMP 98.9; O2SAT 98
[2019-02-27 16:27] LABS: BLOOD UREA NITROGEN 19 mg/dL (7-22)
[2019-02-27 16:55] LABS: Hematocrit [HCT] 35.3 % (42.0-52.0); Hemoglobin [HGB] 12.2 g/dL (14.0-18.0); MEAN CORPUSCULAR HEMOGLOBIN 31.1 PG (27-31); MEAN CORPUSCULAR HGB CONC 34.7 g/dL (33-37); MEAN CORPUSCULAR VOLUME 90 FL (80-90); RED BLOOD COUNT 3.93 10^6/uL (4.70-6.10)
[2019-02-27 16:56] LABS: BASOPHILS % (AUTO) 0.5 % (0-1); EOSINOPHILS % (AUTO) 3.3 % (0-8); LYMPHOCYTES # (AUTO) 1.29 10*3/uL; MEAN PLATELET VOLUME 9.2 FL (7.4-12.2); MONOCYTES % (AUTO) 6.8 % (5-15); NEUTROPHILS # (AUTO) 6.59 10*3/UL; NEUTROPHILS % (AUTO) 74.8 % (50-80)
[2019-02-27 16:57] LABS: BASOPHILS # (AUTO) 0.04 10*3/UL; EOSINOPHILS # (AUTO) 0.29 10*3/UL; PLATELET MORPHOLOGY COMMENT NORMAL MORPHOLOGY (NORM); RBC MORPHOLOGY COMMENT NORMAL MORPHOLOGY (NORM); WBC MORPHOLOGY COMMENT NORMAL MORPHOLOGY (NORM)
[2019-02-28] MEDS ORDERED: BANATROL PLUS PEG SCH (09:00)
== END 2019-02-27 16:42 | disposition swing bed (61) | DRG 194 ==
LOC: MED/SURG 22:00
PROVIDERS: ADMIT Internal Medicine; ATTEND Internal Medicine

== ENCOUNTER 2019-04-01 13:33 | Inpatient (IN) ==
--- NOTE | 2019-04-01 17:45 | PDOC ---
HPI - History of Present Illness Date of Service: 04/01/19 Time of Service: 17:39 Chief Complaint: Tracheostomy dysfunction History of Present Illness: This is a very pleasant 53-year-old male with ALS with respiratory failure, and muscle weakness. He has been receiving ventilatory care here on a swing bed status, but has had difficulty with his tracheostomy changes. The patient states he gets pain his tracheostomy changes. The tracheostomy changes have been traumatic to him. He occasionally has sputum with blood streaked as well. He has been undergoing chest physiotherapy, Mucomyst via nebulizer, as well as breathing therapies. Despite all this, the tracheostomy care has been traumatic and his primary physician, Dr. Grimes, arranged for ear nose and throat to see the patient today. Dr. Marin and I discussed the patient's situation and I tracheostomy revision is planned for tomorrow morning. I am seeing the patient preoperatively, and he denies any chest pain, difficulty breathing, or nausea or vomiting or abdominal pain. He does feel like his infusions have helped slow the disease process down. Past Medical History Medical History: 1. ALS diagnosed 2 years ago. 2. Respiratory failure dependent on ventilator secondary to ALS. 3. Status post PEG and tracheostomy. 4. LLL pneumonia Feb, 2019 Surgical History: Tracheostomy and PEG tube October 2018 Family History: Reviewed an Not Pertinent Pertinent Family History: significant for DM in his mother. Past Social History: Does not smoke, does not drink now drugs. has healthy children Tobacco Use: Never Smoker In the Past 12 Months, Have Used or Abuse Any of the Following Substance: None Alcohol Use: None Medication / Allergies Home Medications: Home Medications Medication Instructions Recorded Confirmed Guaifenesin [Mucinex] 600 mg PEG BID 11/12/18 01/30/19 ibuprofen 100 mg/5 mL oral 600 mg PO TID-QID PRN 90 Days 12/03/18 01/30/19 suspension #4320 ml ipratropium-albuterol 0.5 mg-3 3 ml INH Q6H ml 12/03/18 01/30/19 mg(2.5 mg base)/3 mL nebulization soln sertraline 20 mg/mL oral 100 mg PO QDAY 90 Days #450 ml 12/03/18 01/30/19 concentrate budesonide 0.5 mg/2 mL suspension 2 ml INH BID #60 ml 01/23/19 01/30/19 for nebulization codeine 10 mg-guaifenesin 100 mg/5 2 ml PO Q4-6H PRN #120 ml 01/23/19 01/30/19 mL oral liquid Lorazepam 0.5 mg PO Q6-8H 01/24/19 01/30/19 HYDROcodone/APAP 7.5/325/15ml 15 ml PO Q4H PRN #150 ml 01/25/19 01/30/19 [Lortab 7.5mg/325mg per 15ml Soln] acetylcysteine 200 mg/mL (20 %) 3 ml INH QDAY #270 ml 01/25/19 01/30/19 solution Atropine Sulfate [Isopto Atropine] 5 ml OPHTHALMIC (EYE) Q4-6H PRN 01/30/19 01/30/19 Allergies/Adverse Reactions: Allergies Allergy/AdvReac Type Severity Reaction Status Date / Time No Known Allergies Allergy Verified 04/01/19 07:46 Review of Systems - Ear/Nose Exam Ear/Nose Exam: REPORTS: Other (tracheostomy issues as per HPI), See HPI - Respiratory Respiratory: REPORTS: Negative System Review - Cardiovascular Cardiovascular: REPORTS: Negative System Review - Gastrointestinal Gastrointestinal / Abdominal: REPORTS: Negative System Review - Neurological Neurologic: REPORTS: Other (walking more, but more left leg weakness.) Exam - Vitals Vital Signs: Temperature 97.2 F Temperature Source Temporal Artery Scan Pulse Rate [Apical] 68 Pulse Rate [Pulse Oximeter] 71 Pulse Rate 71 Respiratory Rate 20 Blood Pressure [Left Arm] 112/72 Blood Pressure [Right Arm] 105/69 Pulse Ox 97 Oxygen Flow Rate 4 Oxygen Delivery Method Mechanical Ventilator Height 6 ft Weight 149 lb 11.2 oz - General General Appearance: No Acute Distress, Cooperative - Head Head Exam: Normal Inspection, Normocephalic, Atraumatic - Eye Eye Exam: POSITIVE: No Scleral Icterus - ENT ENT Exam: POSITIVE: Mucous Membranes Moist - Neck Neck Exam: JVP is not Raised - Respiratory Respiratory Exam: POSITIVE: Clear to Auscultation - Bilaterally, Breathing Non Labored, Decreased Breath Sounds (left base, chronic) - Cardiovascular Cardiovascular Exam: POSITIVE: RRR, No Murmur, No Clicks, No Gallops, No Rubs, No JVD - GI/Abdominal GI/Abdominal Exam: POSITIVE: Normal Bowel Sounds, Non Tender, Non Distended, Soft Additional GI/Abdominal Exam Details: PEG tube noted - Rectal Rectal Exam: POSITIVE: Deferred - External Exam: POSITIVE: Deferred Exam: POSITIVE: Deferred - Extremities Extremities Exam: POSITIVE: No Clubbing Present, No Cyanosis Present, Pedal Edema - Neurological Neurological Exam: POSITIVE: Alert, Oriented x 3, No Facial Droop - Psychiatric Psychiatric Exam: POSITIVE: Normal Affect, Normal Mood Results - Labs Additional Lab Results: I have ordered a CMP, CBC with diff, PT and INR Assessment and Plan - Patient Problems (1) Tracheostomy complication, unspecified Status: Acute Code(s): J95.00 - Unspecified tracheostomy complication Qualifiers: Tracheostomy complication: unspecified Qualified Code(s): J95.00 - Unspecified tracheostomy complication (2) ALS (amyotrophic lateral sclerosis) Status: Chronic Code(s): G12.21 - Amyotrophic lateral sclerosis (3) Muscle atrophy Status: Chronic Code(s): M62.50 - Muscle wasting and atrophy, not elsewhere classified, unspecified site Qualifiers: Muscle atrophy area: multiple sites Qualified Code(s): M62.59 - Muscle wasting and atrophy, not elsewhere classified, multiple sites (4) PEG (percutaneous endoscopic gastrostomy) status Status: Chronic Code(s): Z93.1 - Gastrostomy status (5) Respiratory failure, chronic neuromuscular Status: Chronic Code(s): J96.10 - Chronic respiratory failure, unspecified whether with hypoxia or hypercapnia - Assessment / Plan Additional Assessment/Plan Details: admit for observation in preparation for tracheostomy revision consult ENT, I have spoken to Dr. Tomas ocampo prior to surgery NPO and stop tube feeding at midnight. LR at midnight place peripheral IV for surgery tomorrow.
[2019-04-01] MEDS ORDERED: LIDOCAINE W/ SODIUM BICARB 0.5 ML SYR SUBD PRN (19:00)
[2019-04-01] MEDS ORDERED: HYDROcodone/APAP 7.5/325/15ml 15 ML CUP PO PRN (19:00)
[2019-04-01] MEDS ORDERED: POLYETHYLENE GLYCOL 3350 17 GM POWDER PO PRN (19:00)
[2019-04-01] MEDS ORDERED: RANITIDINE 150 MG PEG PRN (19:00)
[2019-04-01] MEDS ORDERED: SIMETHICONE 80 MG TABLET PEG PRN (19:00)
[2019-04-01] MEDS ORDERED: ACETYLCYSTEINE NEB PRN (19:00)
[2019-04-01] MEDS ORDERED: LORazepam 1 MG TABLET PO PRN (19:00)
[2019-04-01] MEDS ORDERED: Bacitracin Oint 14.2 gm tube 14 APPLIC/14.2 GM TUBE TOPICAL PRN (19:00)
[2019-04-01] MEDS ORDERED: ACETAMINOPHEN 325 MG TABLET PO PRN (19:00)
[2019-04-01] MEDS ORDERED: HEPARIN 500 UNIT/5 ML SYRINGE FOR CENTRAL LINE IVP PRN (19:00)
[2019-04-01 19:33] LABS: BASOPHILS # (AUTO) 0.07 10*3/UL; BASOPHILS % (AUTO) 0.7 % (0-1); EOSINOPHILS # (AUTO) 0.31 10*3/UL; EOSINOPHILS % (AUTO) 2.9 % (0-8); Hematocrit [HCT] 41.4 % (42.0-52.0); LYMPHOCYTES # (AUTO) 1.15 10*3/uL; MEAN CORPUSCULAR HEMOGLOBIN 31.2 PG (27-31); MEAN CORPUSCULAR HGB CONC 33.8 g/dL (33-37); MEAN CORPUSCULAR VOLUME 92.2 FL (80-90); MEAN PLATELET VOLUME 11.6 FL (7.4-12.2); MONOCYTES # (AUTO) 0.78 10*3/UL (0.3-0.8); MONOCYTES % (AUTO) 7.3 % (5-15); NEUTROPHILS # (AUTO) 8.41 10*3/UL; NEUTROPHILS % (AUTO) 78.3 % (50-80); RED BLOOD COUNT 4.49 10^6/uL (4.70-6.10)
[2019-04-01 19:34] LABS: PLATELET MORPHOLOGY COMMENT NORMAL MORPHOLOGY (NORM); RBC MORPHOLOGY COMMENT NORMAL MORPHOLOGY (NORM); WBC MORPHOLOGY COMMENT NORMAL MORPHOLOGY (NORM)
[2019-04-01 19:42] LABS: BLOOD UREA NITROGEN 19 mg/dL (7-22); BUN/CREATININE RATIO 63.33 (6-20); SERUM ALBUMIN 4.1 g/dL (3.5-4.8)
[2019-04-01] MEDS: BUDESONIDE 0.5 MG/2 ML NEB SCH (20:44)
[2019-04-01] MEDS: IPRATROPIUM/ALBUTEROL SULFATE 3 ML NEB NEB PRN (20:46)
[2019-04-01] MEDS: SIMETHICONE 80 MG TABLET PEG SCH (23:28)
[2019-04-01] MEDS ORDERED: Lactated Ringers 1,000 ML PRIMARY IV SCH (23:55)
[2019-04-02] MEDS: BUDESONIDE 0.5 MG/2 ML NEB SCH ×2 (06:07→20:49)
[2019-04-02] MEDS: IPRATROPIUM/ALBUTEROL SULFATE 3 ML NEB NEB PRN ×2 (06:09→20:53)
[2019-04-02] MEDS ORDERED: MIDAZOLAM HCL 2 MG/2 ML VIAL ONE (06:50)
[2019-04-02] MEDS ORDERED: fentaNYL Inj 100 MCG/2 ML VIAL ONE (06:50)
[2019-04-02] MEDS ORDERED: LIDOCAINE MPF 2% - 5 ML (20 MG/1 ML) ONE (06:50)
[2019-04-02] MEDS ORDERED: PROPOFOL 10 MG/1 ML (200 MG/20 ML) VIAL IV ONE (06:50)
[2019-04-02] MEDS ORDERED: ROCURONIUM 10 MG/1 ML - 5 ML VIAL IVP ONE (06:52)
[2019-04-02] MEDS ORDERED: Sertraline Tab 50 MG TAB PEG SCH (07:00)
[2019-04-02] MEDS ORDERED: LIDOCAINE HCL 2 % 10 ML JELLY URO-JECT TOPICAL ONE (07:46)
[2019-04-02] MEDS ORDERED: SUGAMMADEX SODIUM 200 MG/2 ML VIAL IV ONE (07:58)
--- NOTE | 2019-04-02 08:02 | ENT.OPNOTE ---
Operative Note -: See Dictated Operative Report
[2019-04-02] MEDS ORDERED: RANITIDINE 150 MG PEG PRN (09:11)
[2019-04-02] MEDS ORDERED: Lactated Ringers 1,000 ML PRIMARY IV SCH (09:11)
[2019-04-02] MEDS ORDERED: SIMETHICONE 80 MG TABLET PEG PRN (09:11)
[2019-04-02] MEDS ORDERED: HEPARIN 500 UNIT/5 ML SYRINGE FOR CENTRAL LINE IVP PRN (09:11)
[2019-04-02] MEDS ORDERED: LIDOCAINE W/ SODIUM BICARB 0.5 ML SYR SUBD PRN (09:11)
[2019-04-02] MEDS ORDERED: ACETAMINOPHEN 325 MG TABLET PO PRN (09:11)
[2019-04-02] MEDS ORDERED: POLYETHYLENE GLYCOL 3350 17 GM POWDER PO PRN (09:11)
[2019-04-02] MEDS ORDERED: LORazepam 1 MG TABLET PO PRN (09:11)
[2019-04-02] MEDS ORDERED: ACETYLCYSTEINE NEB PRN (09:11)
[2019-04-02] MEDS ORDERED: Bacitracin Oint 14.2 gm tube 14 APPLIC/14.2 GM TUBE TOPICAL PRN (09:11)
[2019-04-02] MEDS: HYDROcodone/APAP 7.5/325/15ml 15 ML CUP PO PRN ×2 (10:19→21:32)
[2019-04-02] MEDS: SIMETHICONE 80 MG TABLET PEG SCH ×3 (10:20→19:10)
[2019-04-02] MEDS: Sertraline Tab 50 MG TAB PEG SCH (10:20)
[2019-04-02] MEDS ORDERED: Acetaminophen 1000mg Inj 1,000 MG/100 ML VIAL IV ONE (10:55)
[2019-04-02] MEDS ORDERED: EDARAVONE IV SCH (11:00)
[2019-04-02] MEDS ORDERED: PIGGYBACK IV SCH (11:00)
--- NOTE | 2019-04-02 11:01 | PDOC(PROG) ---
Date of Service: 04/02/19 Time of Service: 10:56 Interval History: after surgery, complaining of a headache. lortab given, but not under control. tired. no chest pain no SOB Objective : Data - Labs CBC and BMP: 04/01/19 19:30 04/01/19 19:30 Additional Lab Results: 04/01/19 04/01/19 19:30 19:30 PT 13.3 H INR 1.15 Calcium 9.3 Total Bilirubin 0.5 AST 51 ALT 98 H Alkaline Phosphatase 136 H Total Protein 6.8 Albumin 4.1 Globulin 2.7 Objective : Exam - General General Appearance: No Acute Distress, Cooperative Additional General Exam Details: Vital Signs - Last Taken Temperature 97.4 F 04/02/19 09:00 Pulse Rate 80 04/02/19 09:51 Respiratory Rate 20 04/02/19 09:51 Blood Pressure 95/65 04/02/19 09:51 Pulse Ox 96 04/02/19 09:51 - Eye Eye Exam: No Scleral Icterus - ENT ENT Exam: Mucous Membranes Moist - Neck Neck Exam: JVP is not Raised - Respiratory Respiratory Exam: Breathing Non Labored, Decreased Breath Sounds (in the bases bilaterally) - Cardiovascular Cardiovascular Exam: RRR, No Murmur, No Clicks, No Gallops, No Rubs, No JVD - GI/Abdominal GI/Abdominal Exam: Normal Bowel Sounds, Non Tender, Non Distended, Soft - Extremities Extremities Exam: No Clubbing Present, No Edema Present, No Cyanosis Present Additional Extremities Exam Details: atrophy noted in shoulders, arms and lower extremities. - Neurological Neurological Exam: Alert, Oriented x 3, No Facial Droop Assessment and Plan - Patient Problems (1) Tracheostomy complication, unspecified Current Visit: Yes Status: Acute Code(s): J95.00 - Unspecified tracheostomy complication Qualifiers: Tracheostomy complication: unspecified Qualified Code(s): J95.00 - Unspecified tracheostomy complication (2) ALS (amyotrophic lateral sclerosis) Current Visit: No Status: Chronic Code(s): G12.21 - Amyotrophic lateral sc lerosis (3) Muscle atrophy Current Visit: No Status: Chronic Code(s): M62.50 - Muscle wasting and atrophy, not elsewhere classified, unspecified site Qualifiers: Muscle atrophy area: multiple sites Qualified Code(s): M62.59 - Muscle wasting and atrophy, not elsewhere classified, multiple sites (4) PEG (percutaneous endoscopic gastrostomy) status Current Visit: No Status: Chronic Code(s): Z93.1 - Gastrostomy status (5) Respiratory failure, chronic neuromuscular Current Visit: No Status: Chronic Code(s): J96.10 - Chronic respiratory failure, unspecified whether with hypoxia or hypercapnia - Assessment / Plan Additional Assessment/Plan Details: the patient has a complex set of medical issues with neuromuscular respiratory failure, ventilator dependance, and need for tracheostomy revision. He is to fe eding dependent. Postoperatively, he complains of a headache. It is quite slow to resolve. Because he is at such risk for aspiration pneumonia and other such events, I would like to get better control of this headache prior to resuming swing bed status. He was too complex to do a same day observation as would normally be done for this type of procedure, and I like to make sure that he is tolerating tube feeds without nausea or vomiting with this headache, that his headache pain is controlled, and that he stabilized on the vent prior to discharge back to the swing bed. I would anticipate that he will likely discharge back to swing bed status tomorrow. We will continue his ALS infusions on observation status. Greatly appreciate help from Dr. Marin.
[2019-04-02] MEDS: EDARAVONE IV SCH (11:15)
[2019-04-02] MEDS: GUAIFENESIN 200 MG/10 ML LIQUID PEG SCH ×3 (11:21→19:10)
[2019-04-03] MEDS: IPRATROPIUM/ALBUTEROL SULFATE 3 ML NEB NEB PRN (06:52)
[2019-04-03] MEDS: BUDESONIDE 0.5 MG/2 ML NEB SCH (06:52)
[2019-04-03] MEDS: GUAIFENESIN 200 MG/10 ML LIQUID PEG SCH (07:21)
[2019-04-03] MEDS: SIMETHICONE 80 MG TABLET PEG SCH (07:22)
[2019-04-03] MEDS: Sertraline Tab 50 MG TAB PEG SCH (07:22)
[2019-04-03 09:50] VITALS: BP 106/69; RESP 20; TEMP 98.6; O2SAT 96
--- NOTE | 2019-04-03 09:58 | OT.PROG ---
Progress Note Progress Note: S: pt stated that he was ready to get dressed, stretched and go for a walk today. O: tx consisted of bed mobility from supine to EOB with MOD A, EOB LE dressing with MAX A for donning clothes over feet and MOD A for donning UE shirt. pt needed MAX A for buttons on shirt. pt completed STS x2 to timothy LE pants. Pt nee ded MIN A for completion of donning LE pants when standing. pt then completed bed mobility from EOB to supine with MOD A for LE mobility. pt participated in UE and LE stretches in all planes of motion. pt then completed functional ambulation with FWW and CGA for safety x300'. pt completed ADL task of toileting with MIN A to doff LE pants. pt then completed functional transfer to chair with MAX A for positioning in chair. A: pt tolerated session well. pt overall is doing well and is recovering from surgery well. P: continue POC
--- NOTE | 2019-04-03 11:05 | DCSUMMARY ---
Hospitalization Summary Admit Date: 04/01/2019 Discharge Date: 04/03/19 Primary Diagnosis:: status post tracheostomy revision Hospital Course: This a very pleasant 53-year-old male who suffers from ALS with respiratory failure and dysphagia. He has had some problems with dramatic tracheostomy changes, some variability he believes in his vent in breathing, and was evaluated by ear nose and throat neck was felt that he had granulation tissue and scarring and he went for tracheostomy revision on 04/02/2019, and postoperatively had headaches that were relieved with Tylenol IV. I feel with the nature of his neuromuscular respiratory failure, ventilator dependence, tube feeding dependence, that it would be best to place the patient on observation to make sure that we did not have any untoward issues postoperatively and that he had a good preoperative assessment as well. His medical issues are very complex and he is at high risk for pneumonia as he has recently had a left lower lobe pneumonia, high risk for aspiration, and thankfully, after his headaches res olved, no nausea or vomiting was observed, and the patient seemed to recover well. Dr. Marin performed the tracheostomy revision. See his surgical notes regarding the procedure details. Today the patient reports no chest pain, no shortness of breath although he feels that he may have some leakage of air and help that with the prior tracheostomy tube as well. No nausea or vomiting. Assessment and Plan: 1. As per discharge assessments noted 2. Disposition: Patient is discharged back to swing bed 3. Condition on discharge, stable and improved. Long-term prognosis terminal 4. Diet: Strict nothing by mouth, tube feeding dependent 5. Activities: resume normal activities 6. Follow-Up: 1. Hospital service will continue to follow the patient 7. Medications at the Time of Discharge: Active Medications Generic Name Dose Route Start Last Admin Trade Name Freq PRN Reason Stop Dose Admin Acetaminophen 650 mg 04/02/19 09:11 Tylenol PO Q4H PRN Headache Hydrocodone Bitart/Acetaminophen 15 ml 04/02/19 09:11 04/02/19 21:32 Lortab 7.5mg/325mg Per 15ml Soln PO 15 ml Q4H PRN Administration Pain Acetylcysteine 600 mg 04/02/19 09:11 Mucomyst Neb Soln NEB RTBID PRN Shortness of Breath/Congestion Albuterol/Ipratropium 3 ml 04/02/19 09:11 04/03/19 06:52 Duoneb Neb Soln NEB 3 ml RTQ6H PRN Administration Shortness of Breath Bacitracin 1 applic 04/02/19 09:11 Bacitracin Ointment 14.2 Gm Tube TOPICAL DAILY PRN Irritation Budesonide 0.5 mg 04/02/19 19:00 04/03/19 06:52 Pulmicort Neb Soln NEB 0.5 mg RTBID SHANITA Administration Guaifenesin 200 mg 04/02/19 11:15 04/03/19 07:21 Mucus-Chest Congestion PEG 200 mg TID@0700,1300,1900 SHANITA Administration Heparin Sodium (Porcine) 500 unit 04/02/19 09:11 Heparin Lock Inj (For Central Line) IVP Q24H PRN Flush Sodium Chloride 25 mls @ 200 mls/hr 04/02/19 09:11 Normal Saline 0.9% IV .Post Infusion PRN .No Primary IV for Flush Only EDARAVONE 60 mg in 200 mls @ 200 mls/hr 04/02/19 11:00 04/02/19 11:15 Radicava IV 04/04/19 11:59 200 mls/hr Q24H SHANITA Administration Lidocaine HCl 0.5 ml 04/02/19 09:11 Lidocaine Buffered Inj SUBD ONCE PRN IV Starts Lorazepam 0.5 mg 04/02/19 09:11 Ativan Tab PO QID PRN Anxiety Own Med : Ranitidine 150 04/02/19 09:11 150 Mg PEG BID PRN Heartburn Polyethylene Glycol 17 gm 04/02/19 09:11 Miralax Packet PO DAILY PRN Constipation Sertraline HCl 100 mg 04/02/19 10:00 04/03/19 07:22 Zoloft PEG 100 mg DAILY@0700 [facility] Administration Simethicone 80 mg 04/02/19 09:11 Gas-X PEG QID PRN Gas Simethicone 80 mg 04/02/19 10:00 04/03/19 07:22 Gas-X PEG 80 mg BID@0700,1900 SHANITA Administration 8. This is an observation discharge. Exam - Vitals Vital Signs: Vital Signs Temperature 98.6 F Temperature Source Oral Pulse Rate [Pulse Oximeter] 83 Pulse Rate 76 Respiratory Rate 20 Blood Pressure [Right Arm] 106/69 Blood Pressure 108/76 Pulse Ox 96 Oxygen Flow Rate 4 Oxygen Delivery Method Mechanical Ventilator Height 6 ft Weight 149 lb 11.2 oz - General General Appearance: No Acute Distress, Cooperative - Eye Eye Exam: POSITIVE: No Scleral Icterus - ENT ENT Exam: POSITIVE: Mucous Membranes Moist Additonal ENT Exam Details: Upper lip is swollen. - Neck Neck Exam: JVP is not Raised - Respiratory Respiratory Exam: POSITIVE: Clear to Auscultation - Bilaterally, Breathing Non Labored, Decreased Breath Sounds (In the bases bilaterally, left greater than right) - Cardiovascular Cardiovascular Exam: POSITIVE: RRR, No Murmur, No Clicks, No Gallops, No Rubs, No JVD - GI/Abdominal GI/Abdominal Exam: POSITIVE: Normal Bowel Sounds, Non Tender, Non Distended, Soft - Extremities Extremities Exam: POSITIVE: No Clubbing Present, No Cyanosis Present, Pedal Edema - Neurological Neurological Exam: POSITIVE: Alert, Oriented x 3, No Facial Droop Data Peritnent Studies: 04/01/19 04/01/19 04/01/19 19:30 19:30 19:30 WBC 10.73 Hgb 14.0 Hct 41.4 L Plt Count 193 PT 13.3 H INR 1.15 Sodium 140 Potassium 4.0 Chloride 102 Carbon Dioxide 28 Anion Gap 10 BUN 19 Creatinine 0.3 L Glucose 98 Calculated Osmolality 291.0 Calcium 9.3 Total Bilirubin 0.5 AST 51 ALT 98 H Alkaline Phosphatase 136 H Total Protein 6.8 Albumin 4.1 Globulin 2.7 Patient Problems - Patient Problem List (1) Tracheostomy complication, unspecified Current Visit: Yes Status: Acute Code(s): J95.00 - Unspecified tracheostomy complication Qualifiers: Tracheostomy complication: unspecified Qualified Code(s): J95.00 - Unspecified tracheostomy complication Category: Medical (2) ALS (amyotrophic lateral sclerosis) Current Visit: No Status: Chronic Code(s): G12.21 - Amyotrophic lateral sclerosis Category: Medical (3) Muscle atrophy Current Visit: No Status: Chronic Code(s): M62.50 - Muscle wasting and atrophy, not elsewhere classified, unspecified site Qualifiers: Muscle atrophy area: multiple sites Qualified Code(s): M62.59 - Muscle wasting and atrophy, not elsewhere classified, multiple sites Category: Medical (4) PEG (percutaneous endoscopic gastrostomy) status Current Visit: No Status: Chronic Code(s): Z93.1 - Gastrostomy status Category: Surgical (5) Respiratory failure, chronic neuromuscular Current Visit: No Status: Chronic Code(s): J96.10 - Chronic respiratory failure, unspecified whether with hypoxia or hypercapnia Category: Medical
[2019-04-03] MEDS: EDARAVONE IV SCH (11:17)
--- NOTE | 2019-04-03 11:39 | OTI REPORT ---
Thank you for the referral of Allan Watson (Jack). He was seen on 04/03/19 for an occupational therapy inpatient evaluation secondary to ALS. SUBJECTIVE: The patient is a 53-year-old male who is being seen secondary to decreasing function with his ALS. The patient has been in the hospital for over a month now and the past few weeks he has suffered from some pneumonia. He reports that he is feeling a little bit better; however, he is getting weaker. He can still use his fingers to text to talk. The patient is able to express his needs and wants. PAST MEDICAL HISTORY: Past medical history can be found in the patient's medical record. OBJECTIVE FINDINGS: General observations: The patient is on a trach and a feeding tube. Range of motion: The patient does not have active movement of the shoulders. Elbow flexion/extension is limited but he is able to help the other elbow; for instance to do his suction or to wipe his face. He has active assistive range to 120 degrees. In his hands he has limited extension but he is able to use his thumbs to text. If he can extend his fingers with his other hand, he can help position his hands when needed. Bed mobility: The patient is able to come from supine to sit with min assist. Activities of daily living: The patient is dependent with dressing tasks. ASSESSMENT: The main goal of occupational therapy is to keep the patient as mobile as possible. We are going to do passive range of motion of the upper extremities in all planes and ranges. We will continue to address his communication needs as necessary. Right now he is able to text to communicate. His significant other is looking into assistive technology to use his eyes for communication. Problem List: Decreased range of motion Decreased ability to communicate Generalized weakness Short-Term Goals: To be met by discharge from inpatient: Patient will keep current passive range of motion measurements. Patient will be able to use different communication devices if necessary. Long-Term Goals: To be met following discharge from inpatient: Patient will keep mobility and decrease chance of pressure sores to keep as much independence as possible. TREATMENT PLAN: Patient will be seen one time per day during the week and one time per day over the weekend as an inpatient to address the above goals and objectives. INITIAL TREATMENT: Treatment today consisted of the inpatient evaluation only. DANIELA
== END 2019-04-03 11:44 | disposition swing bed (61) | DRG 981 ==
LOC: MED/SURG → EDSTATUS 13:40 → OPS 04-02 06:42 → EDSTATUS 04-02 07:00 → MED/SURG 04-02 08:55
PROVIDERS: ADMIT Family Medicine; ATTEND Family Medicine

== ENCOUNTER 2019-06-19 09:51 | Inpatient (IN) ==
[2019-06-19] MEDS ORDERED: MIDAZOLAM 5 MG/1 ML ONE (11:10)
[2019-06-19] MEDS ORDERED: ROCURONIUM 10 MG/1 ML - 5 ML VIAL IVP ONE (11:46)
--- NOTE | 2019-06-19 12:38 | ENT.OPNOTE ---
Operative Note -: See Dictated Operative Report
--- NOTE | 2019-06-19 12:43 | CRNA.PROGR ---
Anesthesia Time - Procedure/Recovery Time Start Date: 06/19/19 End Date: 06/19/19 Anesthesia : Time In: 11:32 Anesthesia : Time Out: 12:41 Anesthesia : Total Time: 69 - Total Anesthesia Time Total Anesthesia Time (minutes): 69 - Other Physical Status: P3 Anesthesia Type: General Anesthesia : ET ([facility])
--- NOTE | 2019-06-19 12:43 | CRNA.PROGR ---
Post Anesthesia Phase II - Post Anesthesia Phase II Patient Stable and Discharged To: Phase II Care Assumed By Surgeon: Braden Marin MD Total Paulina Score at Discharge: 9 Post Anesthesia Discharge Criteria Met: Yes
[2019-06-19 13:53] VITALS: RESP 16
[2019-06-19 14:33] VITALS: BP 115/75; TEMP 97.5; O2SAT 97
== END 2019-06-19 14:30 | disposition swing bed (61) | DRG 981 ==
LOC: OPS 11:05 → MED/SURG 13:43
PROVIDERS: ADMIT Otolaryngology; ATTEND Otolaryngology

== ENCOUNTER 2019-07-30 11:58 | Inpatient (IN) ==
[2019-07-30] MEDS ORDERED: LORazepam 1 MG TABLET PEG PRN (12:23)
[2019-07-30] MEDS ORDERED: oxyCODONE/APAP 7.5/325 Tab 1 TAB TAB PO ONE (12:23)
[2019-07-30] MEDS ORDERED: LIDOCAINE W/ SODIUM BICARB 0.5 ML SYR SUBD PRN (12:23)
[2019-07-30] MEDS ORDERED: HYDROcodone/APAP 7.5/325/15ml 15 ML CUP PEG PRN (12:23)
[2019-07-30] MEDS: Cefepime Inj 2 GM in Sodium Chloride 0.9% 100 ML IV SCH ×2 (12:57→21:53)
[2019-07-30] MEDS: IBUPROFEN 100 MG/5 ML PO PRN ×2 (13:53→21:57)
[2019-07-30] MEDS: HEPARIN 500 UNIT/5 ML SYRINGE FOR CENTRAL LINE IVP PRN (16:10)
[2019-07-30] MEDS: GUAIFENESIN 200 MG/10 ML PO SCH (20:04)
[2019-07-30] MEDS: SIMETHICONE 80 MG TABLET PEG SCH (20:05)
[2019-07-30] MEDS: BUDESONIDE 0.5 MG/2 ML NEB SCH (20:20)
[2019-07-30] MEDS: ACETYLCYSTEINE NEB PRN (20:21)
[2019-07-30] MEDS: IPRATROPIUM/ALBUTEROL SULFATE 3 ML NEB NEB PRN (20:22)
[2019-07-30] MEDS ORDERED: CLOTRIMAZOLE 28.35 GM CREAM TOPICAL SCH (21:00)
[2019-07-30] MEDS ORDERED: HYDROCORTISONE 1% CREAM - 28.35 GM TOPICAL SCH (21:00)
[2019-07-31] MEDS: Cefepime Inj 2 GM in Sodium Chloride 0.9% 100 ML IV SCH ×3 (04:24→20:59)
[2019-07-31 05:43] LABS: Hemoglobin [HGB] 11.6 g/dL (14.0-18.0); RED BLOOD COUNT 3.69 10^6/uL (4.70-6.10)
[2019-07-31 05:44] LABS: BASOPHILS # (AUTO) 0.08 10*3/UL; BASOPHILS % (AUTO) 0.6 % (0-1); EOSINOPHILS # (AUTO) 0.33 10*3/UL; EOSINOPHILS % (AUTO) 2.7 % (0-8); LYMPHOCYTES # (AUTO) 0.96 10*3/uL; MEAN CORPUSCULAR HGB CONC 35.2 g/dL (33-37); MEAN CORPUSCULAR VOLUME 89.4 FL (80-90); MEAN PLATELET VOLUME 11.4 FL (7.4-12.2); MONOCYTES # (AUTO) 1.67 10*3/UL (0.3-0.8); MONOCYTES % (AUTO) 13.4 % (5-15); NEUTROPHILS # (AUTO) 9.36 10*3/UL; NEUTROPHILS % (AUTO) 75.4 % (50-80); PLATELET MORPHOLOGY COMMENT NORMAL MORPHOLOGY (NORM); RBC MORPHOLOGY COMMENT NORMAL MORPHOLOGY (NORM); WBC MORPHOLOGY COMMENT NORMAL MORPHOLOGY (NORM)
[2019-07-31] MEDS: IBUPROFEN 100 MG/5 ML PO PRN (05:53)
[2019-07-31] MEDS: ACETYLCYSTEINE NEB PRN (06:40)
[2019-07-31] MEDS: IPRATROPIUM/ALBUTEROL SULFATE 3 ML NEB NEB PRN ×2 (06:43→19:32)
[2019-07-31] MEDS: BUDESONIDE 0.5 MG/2 ML NEB SCH ×2 (06:44→19:33)
[2019-07-31] MEDS: LANSOPRAZOLE 30 MG SOLUTAB PEG SCH (07:01)
[2019-07-31] MEDS: GUAIFENESIN 200 MG/10 ML PO SCH ×2 (07:01→12:53)
[2019-07-31] MEDS: Sertraline Tab 100 MG TAB PO SCH (07:01)
[2019-07-31] MEDS: SIMETHICONE 80 MG TABLET PEG SCH ×2 (07:01→19:08)
[2019-07-31] MEDS: EDARAVONE IV SCH (09:57)
[2019-07-31] MEDS: HEPARIN 500 UNIT/5 ML SYRINGE FOR CENTRAL LINE IVP PRN (12:50)
[2019-07-31] MEDS: IBUPROFEN 100 MG/5 ML PEG PRN ×2 (15:16→20:59)
[2019-07-31] MEDS: GUAIFENESIN 200 MG/10 ML PEG SCH (19:08)
[2019-08-01] MEDS: Cefepime Inj 2 GM in Sodium Chloride 0.9% 100 ML IV SCH ×3 (04:38→20:25)
[2019-08-01] MEDS: HEPARIN 500 UNIT/5 ML SYRINGE FOR CENTRAL LINE IVP PRN ×3 (04:50→20:35)
[2019-08-01 05:41] LABS: BASOPHILS % (AUTO) 0.7 % (0-1); EOSINOPHILS % (AUTO) 5.1 % (0-8); Hematocrit [HCT] 33.6 % (42.0-52.0); Hemoglobin [HGB] 11.6 g/dL (14.0-18.0); MEAN CORPUSCULAR HGB CONC 34.5 g/dL (33-37); MEAN CORPUSCULAR VOLUME 88.9 FL (80-90); MEAN PLATELET VOLUME 11.1 FL (7.4-12.2); MONOCYTES % (AUTO) 13.8 % (5-15); NEUTROPHILS % (AUTO) 67.4 % (50-80); RED BLOOD COUNT 3.78 10^6/uL (4.70-6.10)
[2019-08-01 05:42] LABS: BASOPHILS # (AUTO) 0.06 10*3/UL; EOSINOPHILS # (AUTO) 0.44 10*3/UL; LYMPHOCYTES # (AUTO) 1.07 10*3/uL; MONOCYTES # (AUTO) 1.18 10*3/UL (0.3-0.8); NEUTROPHILS # (AUTO) 5.79 10*3/UL; PLATELET MORPHOLOGY COMMENT NORMAL MORPHOLOGY (NORM); RBC MORPHOLOGY COMMENT NORMAL MORPHOLOGY (NORM); WBC MORPHOLOGY COMMENT NORMAL MORPHOLOGY (NORM)
[2019-08-01 05:48] LABS: BLOOD UREA NITROGEN 14 mg/dL (7-22); BUN/CREATININE RATIO 46.66 (6-20); SERUM ALBUMIN 3.7 g/dL (3.5-4.8)
[2019-08-01] MEDS: ACETYLCYSTEINE NEB PRN (06:51)
[2019-08-01] MEDS: BUDESONIDE 0.5 MG/2 ML NEB SCH ×2 (06:52→19:20)
[2019-08-01] MEDS: IPRATROPIUM/ALBUTEROL SULFATE 3 ML NEB NEB PRN ×2 (06:52→19:18)
[2019-08-01] MEDS: LANSOPRAZOLE 30 MG SOLUTAB PEG SCH (07:09)
[2019-08-01] MEDS: SIMETHICONE 80 MG TABLET PEG SCH ×2 (07:10→20:24)
[2019-08-01] MEDS: Sertraline Tab 100 MG TAB PO SCH (07:10)
[2019-08-01] MEDS: GUAIFENESIN 200 MG/10 ML PEG SCH ×3 (07:21→20:24)
[2019-08-01] MEDS: EDARAVONE IV SCH (10:23)
[2019-08-02] MEDS: Cefepime Inj 2 GM in Sodium Chloride 0.9% 100 ML IV SCH (04:24)
[2019-08-02] MEDS: HEPARIN 500 UNIT/5 ML SYRINGE FOR CENTRAL LINE IVP PRN (04:24)
[2019-08-02 05:20] LABS: Hemoglobin [HGB] 11.6 g/dL (14.0-18.0); RED BLOOD COUNT 3.72 10^6/uL (4.70-6.10)
[2019-08-02 05:21] LABS: BASOPHILS # (AUTO) 0.08 10*3/UL; EOSINOPHILS # (AUTO) 0.36 10*3/UL; EOSINOPHILS % (AUTO) 4.4 % (0-8); Hematocrit [HCT] 33.5 % (42.0-52.0); LYMPHOCYTES # (AUTO) 1.05 10*3/uL; MEAN CORPUSCULAR HGB CONC 34.6 g/dL (33-37); MEAN CORPUSCULAR VOLUME 90.1 FL (80-90); MEAN PLATELET VOLUME 11.5 FL (7.4-12.2); MONOCYTES # (AUTO) 1.05 10*3/UL (0.3-0.8); MONOCYTES % (AUTO) 12.9 % (5-15); NEUTROPHILS # (AUTO) 5.58 10*3/UL; NEUTROPHILS % (AUTO) 68.2 % (50-80)
[2019-08-02 05:22] LABS: PLATELET MORPHOLOGY COMMENT NORMAL MORPHOLOGY (NORM); RBC MORPHOLOGY COMMENT NORMAL MORPHOLOGY (NORM); WBC MORPHOLOGY COMMENT NORMAL MORPHOLOGY (NORM)
[2019-08-02 05:24] LABS: BLOOD UREA NITROGEN 13 mg/dL (7-22); BUN/CREATININE RATIO 43.33 (6-20)
[2019-08-02 05:29] LABS: SERUM ALBUMIN 3.5 g/dL (3.5-4.8)
[2019-08-02] MEDS: ACETYLCYSTEINE NEB PRN (06:26)
[2019-08-02] MEDS: IPRATROPIUM/ALBUTEROL SULFATE 3 ML NEB NEB PRN (06:27)
[2019-08-02] MEDS: BUDESONIDE 0.5 MG/2 ML NEB SCH (06:31)
[2019-08-02] MEDS: Sertraline Tab 100 MG TAB PO SCH (07:02)
[2019-08-02] MEDS: GUAIFENESIN 200 MG/10 ML PEG SCH (07:02)
[2019-08-02] MEDS: LANSOPRAZOLE 30 MG SOLUTAB PEG SCH (07:02)
[2019-08-02] MEDS: SIMETHICONE 80 MG TABLET PEG SCH (07:02)
[2019-08-02 07:15] VITALS: BP 112/72; RESP 21; TEMP 98.2; O2SAT 96
== END 2019-08-02 11:39 | disposition swing bed (61) | DRG 194 ==
LOC: MED/SURG 12:36
PROVIDERS: ADMIT Internal Medicine; ATTEND Internal Medicine